=== PATIENT | male | born 1995 | race Hispanic/Latino ===

== ENCOUNTER 2024-05-09 21:04 | Emergency (ER) | payer OTHER, SELFPAY ==
[2024-05-09 21:10] VITALS: BP 170/126
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
[2024-05-09 21:56] VITALS: BP 146/79
--- NOTE | 2024-05-09 22:20 | EDRN ---
Prema, EDT applying sling
== END 2024-05-09 22:45 | disposition home or self-care (01) ==
LOC: EMR 21:04
PROVIDERS: EMERGENCY PHYSICIAN Emergency Medicine
DX: S46.201A Unspecified injury of muscle, fascia and tendon of other parts of biceps, right arm, initial encounter (principal); S40.021A Contusion of right upper arm, initial encounter; S20.212A Contusion of left front wall of thorax, initial encounter; S20.312A Abrasion of left front wall of thorax, initial encounter; Y00.XXXA Assault by blunt object, initial encounter
CPT/HCPCS: 99283; 73060; 73140